=== PATIENT | male | born 2005 | race Hispanic/Latino ===

== ENCOUNTER 2023-01-11 00:56 | Emergency (ER) | payer SELFPAY ==
[2023-01-11] MEDS ORDERED: Ondansetron PF 4 MG/2 ML Vial ONE (02:45)
== END 2023-01-11 05:25 | disposition left against medical advice (07) ==
LOC: EDBD 00:56 → ERS 00:56
DX: F10.129 Alcohol abuse with intoxication, unspecified (principal)
CPT/HCPCS: 96372; 99283; J2405